=== PATIENT | male | born 1975 | race Caucasian/White ===

== ENCOUNTER 2018-01-03 19:33 | Emergency (ER) | payer OTHER, MEDICAID ==
--- NOTE | 2018-01-03 20:01 | EDPHY ---
H & P Time Seen by Provider: 01/03/18 19:45 HPI/ROS: CHIEF COMPLAINT: Chills HISTORY OF PRESENT ILLNESS: 42-year-old man is on CellCept and prednisone for myasthenia gravis. He did have a tracheostomy about 11 years ago at [facility] related to his myasthenia. He says he just not"feeling right"over the last 2 weeks with intermittent hot and cold flashes but mainly chills. Associated with some mild abdominal cramps and legs shaking. He started Bactrim 4 days ago after consulting with his sister who is a nurse in [place]. Tonight he complains of continued chills and leg shaking. Denies associated shortness of breath or coughing, no vomiting or diarrhea, no urinary symptoms. Denies headache or neck stiffness. REVIEW OF SYSTEMS: Eye: no change in vision ENT: no sore throat Cardiac: no chest pain or syncope Pulmonary: no cough or SOB Abdomen: HPI Musculoskeletal: no back pain, has some bilateral leg cramping and shaking Skin: no rash Neuro: no headache Constitutional: HPI : no urinary symptoms A comprehensive 10 point review of systems is otherwise negative aside from elements mentioned in the history of present illness. PAST MEDICAL HISTORY: Myasthenia gravis and hand surgery Social history: Occasional alcohol but none recently, no recent foreign travel General Appearance: Alert and conversant, cooperative. Looks well, not septic or toxic. Eyes: No scleral icterus. ENT, Mouth: Normal mucous membranes. Normal pharynx without erythema or exudate , uvula midline. Respiratory: Normal respiratory effort, breath sounds equal, lungs are clear to auscultation. Cardiovascular: Regular rate and rhythm. No murmur. Gastrointestinal: Abdomen is soft and non tender. Normal male . Neurological: Alert, face symmetric, normal motor and sensory in extremities. Ambulatory. Normal speech. Not ataxic. Skin: Warm and dry, no rashes. No petechiae or purpura. Musculoskeletal: No peripheral edema. Normal range of motion of the neck Psychiatric: Not agitated. Emergency Department course/MDM: Patient is noted to be on medications for myasthenia which include immune suppressants. Plan for labs to include LFTs and lipase, CBC, chest x-ray and urinalysis, influenza testing. 2144: Results discussed with the patient, his primary care physician is called at [phone], then at [phone], and then paged at [phone]. This point I think it is reasonable to discharge with copies of all his labs and tests and he will follow up tomorrow with his primary care physician or neurologist. He feels better after IV fluids and his leg cramps have resolved. 2151: Discussed with Dr. Camacho for Valasia. OK with DC, send blood cultures, and PCP will followup on blood cultures and in the office tomorrow. More likely viral, I think that serious bacterial infection is unlikely at this time. Smoking Status: Former smoker Constitutional: Initial Vital Signs Temperature (C) 37 C 01/03/18 19:37 Heart Rate 101 H 01/03/18 19:37 Respiratory Rate 16 01/03/18 19:37 Blood Pressure 171/100 H 01/03/18 19:37 O2 Sat (%) 94 01/03/18 19:37 O2 Delivery Mode Room Air Allergies/Adverse Reactions: morphine Allergy (Verified 01/03/18 19:43) unk abx Allergy (Uncoded 01/03/18 19:43) Home Medications: Medication Instructions Recorded MESTINON 11/05/10 Mycophenolate Mofetil [Cellcept] 1,500 mg PO BID 11/19/10 predniSONE 20 mg PO DAILY 11/19/10 Bactrim DS 01/03/18 Losartan Potassium 01/03/18 Medical Decision Making - Diagnostics Imaging Results: Chest x-ray shows no pneumonia personally interpreted Imaging: I viewed and interpreted images myself Differential Diagnosis: Differential considered including but not limited to UTI, pneumonia, influenza, sepsis - Data Points Laboratory Results: Laboratory Results 01/03/18 20:11 01/03/18 20:11 01/03/18 01/03/18 01/03/18 20:52 20:11 20:11 WBC RBC Hgb Hct MCV MCH MCHC RDW Plt Count MPV Neut % (Auto) Lymph % (Auto) [place] % (Auto) Eos % (Auto) Baso % (Auto) Nucleat RBC Rel Count Absolute Neuts (auto) Absolute Lymphs (auto) Absolute Monos (auto) Absolute Eos (auto) Absolute Basos (auto) Absolute Nucleated RBC Immature Gran % Immature Gran # PT INR APTT VBG Lactic Acid Sodium 138 mEq/L mEq/L (135-145) Potassium 3.7 mEq/L mEq/L (3.5-5.2) Chloride 106 mEq/L mEq/L (97-110) Carbon Dioxide 23 mEq/l mEq/l (22-31) Anion Gap 9 mEq/L mEq/L (8-16) BUN 17 mg/dL mg/dL (7-23) Creatinine 1.3 mg/dL mg/dL (0.7-1.3) Estimated GFR > 60 Glucose 108 mg/dL H mg/dL (70-100) Calcium 10.1 mg/dL mg/dL (8.5-10.4) Total Bilirubin 0.4 mg/dL mg/dL (0.1-1.4) Conjugated Bilirubin 0.2 mg/dL mg/dL (0.0-0.5) Unconjugated Bilirubin 0.2 mg/dL mg/dL (0.0-1.1) AST 25 IU/L IU/L (17-59) ALT 32 IU/L IU/L (21-72) Alkaline Phosphatase 67 IU/L IU/L (38-126) Total Protein 7.4 g/dL g/dL (6.3-8.2) Albumin 4.7 g/dL g/dL (3.5-5.0) Lipase 125 IU/L IU/L (23-300) Urine Color YELLOW Urine Appearance CLEAR Urine pH 5.0 (5.0-7.5) Ur Specific Ault 1.017 (1.002-1.030) Urine Protein NEGATIVE (NEGATIVE) Urine Ketones TRACE H (NEGATIVE) Urine Blood NEGATIVE (NEGATIVE) Urine Nitrate NEGATIVE (NEGATIVE) Urine Bilirubin NEGATIVE (NEGATIVE) Urine Urobilinogen NEGATIVE EU EU (0.2-1.0) Ur Leukocyte Esterase NEGATIVE (NEGATIVE) Urine Glucose NEGATIVE (NEGATIVE) Nasal Influenza A PCR NEGATIVE FOR FLU A (NEGATIVE) Nasal Influenza B PCR NEGATIVE FOR FLU B (NEGATIVE) 01/03/18 01/03/18 01/03/18 20:11 20:11 20:10 WBC 9.97 10^3/uL H 10^3/uL (3.80-9.50) RBC 4.81 10^6/uL 10^6/uL (4.40-6.38) Hgb 15.1 g/dL g/dL (13.7-17.5) Hct 43.0 % % (40.0-51.0) MCV 89.4 fL fL (81.5-99.8) MCH 31.4 pg pg (27.9-34.1) MCHC 35.1 g/dL g/dL (32.4-36.7) RDW 12.4 % % (11.5-15.2) Plt Count 250 10^3/uL 10^3/uL (150-400) MPV 10.4 fL fL (8.7-11.7) Neut % (Auto) 70.2 % % (39.3-74.2) Lymph % (Auto) 19.1 % % (15.0-45.0) [place] % (Auto) 10.1 % % (4.5-13.0) Eos % (Auto) 0.2 % L % (0.6-7.6) Baso % (Auto) 0.1 % L % (0.3-1.7) Nucleat RBC Rel Count 0.0 % % (0.0-0.2) Absolute Neuts (auto) 7.00 10^3/uL H 10^3/uL (1.70-6.50) Absolute Lymphs (auto) 1.90 10^3/uL 10^3/uL (1.00-3.00) Absolute Monos (auto) 1.01 10^3/uL H 10^3/uL (0.30-0.80) Absolute Eos (auto) 0.02 10^3/uL L 10^3/uL (0.03-0.40) Absolute Basos (auto) 0.01 10^3/uL L 10^3/uL (0.02-0.10) Absolute Nucleated RBC 0.00 10^3/uL 10^3/uL (0-0.01) Immature Gran % 0.3 % % (0.0-1.1) Immature Gran # 0.03 10^3/uL 10^3/uL (0.00-0.10) PT 13.1 SEC SEC (12.0-15.0) INR 0.97 (0.83-1.16) APTT 32.3 SEC SEC (23.0-38.0) VBG Lactic Acid 1.0 mmol/L mmol/L (0.7-2.1) Sodium Potassium Chloride Carbon Dioxide Anion Gap BUN Creatinine Estimated GFR Glucose Calcium Total Bilirubin Conjugated Bilirubin Unconjugated Bilirubin AST ALT Alkaline Phosphatase Total Protein Albumin Lipase Urine Color Urine Appearance Urine pH Ur Specific Ault Urine Protein Urine Ketones Urine Blood Urine Nitrate Urine Bilirubin Urine Urobilinogen Ur Leukocyte Esterase Urine Glucose Nasal Influenza A PCR Nasal Influenza B PCR Medications Given: Discontinued Medications Sodium Chloride (Ns) 1,000 mls @ 0 mls/hr IV ONCE ONE PRN Reason: Wide Open Stop: 01/03/18 20:22 Last Admin: 01/03/18 20:22 Dose: 1,000 mls Departure - Departure Disposition: Home, Routine, Self-Care Clinical Impression: Chills Condition: Good Instructions: Additional Information Additional Instructions: Bring copies of all lab tests and CD with your Chest Xray on it to your doctor tomorrow. You need to have your doctor call in 24 hours to [phone] to check on your blood cultures. Referrals: NONE *PRIMARY CARE P,. [Primary Care Provider] - As per Instructions (Please see your neurologist or Dr. Hi tomorrow in the office.)
[2018-01-03] MEDS ORDERED: NS 1,000 ML IV ONE (20:21)
[2018-01-03 20:24] LABS: PLATELET COUNT 250 10^3/uL (150-400)
[2018-01-03 20:34] LABS: INR 0.97 (0.83-1.16); PROTIME(PATIENT) 13.1 SEC (12.0-15.0)
[2018-01-03 22:03] VITALS: BP 161/87; PULSE 97; RESP 18; TEMP 98.1; O2SAT 96
== END 2018-01-03 21:30 | disposition home or self-care (01) ==
DX: R68.83 Chills (without fever) (principal); Z87.891 Personal history of nicotine dependence